=== PATIENT | male | born 1965 | race Caucasian/White ===

== ENCOUNTER → 2018-11-21 17:22 | Outpatient (CLI) | payer OTHER, SELFPAY ==
[2018-11-21 18:21] LABS: Anion Gap 11.2 mEq/L (5-15); Blood Urea Nitrogen 12 mg/dL (7-18); Calcium 9.4 mg/dL (8.5-10.1); Carbon Dioxide 30 mmol/L (21.0-32.0); Chloride 103 mmol/L (98-107); Creatinine,Serum 0.94 mg/dL (0.70-1.30); Estimated Glomerular Filt Rate 85 ml/min (>60); GFR (African American) 102 ML/MIN (>60); Glucose 157 mg/dL (74-106); Potassium 4.2 mmoL/L (3.5-5.1); Sodium 140 mmol/L (136-145)
[2018-11-22 19:06] LABS: Hemoglobin A1C 8.2 % (0.0-7.0)
[2018-11-23 11:11] LABS: Creatinine, Urine 96.4 mg/dL (Not Estab.); Microalbumin, Urine 5.3 ug/mL (Not Estab.)
[2018-11-25 14:41] LABS: Miscellaneous Test COMMENT:
== END ==
PROVIDERS: Visit Provider Specialist
DX: E10.65 Type 1 diabetes mellitus with hyperglycemia (principal)
CPT/HCPCS: 36415; 80048; 82043; 82570; 83036

== ENCOUNTER → 2021-01-01 17:33 | Outpatient (CLI) | payer OTHER, SELFPAY ==
[2021-01-01 18:15] LABS: Hemoglobin A1C 8.4 % (4.0-6.0)
[2021-01-01 18:28] LABS: Chloride 102 mmol/L (98-107); Sodium 137 mmol/L (136-145)
[2021-01-01 18:31] LABS: Blood Urea Nitrogen 12 mg/dl (9-20); Calcium 9.5 mg/dl (8.4-10.2); Carbon Dioxide 27 mmol/L (22.0-30.0); Estimated Glomerular Filt Rate 101 ml/min (>60); GFR (African American) 122 ML/MIN (>60); Glucose 125 mg/dl (74-100)
== END ==
PROVIDERS: Visit Provider Specialist
DX: E10.65 Type 1 diabetes mellitus with hyperglycemia (principal)
CPT/HCPCS: 36415; 80048; 83036

== ENCOUNTER → 2021-10-20 09:05 | Outpatient (CLI) | payer OTHER, SELFPAY ==
[2021-10-20 10:02] LABS: Alanine Aminotransferase 18 U/L (12-78); Albumin Level 3.8 g/dl (3.5-5.0); Albumin/Globulin Ratio 1.7 (1.1-1.8); Alkaline Phosphatase 79 U/L (38-126); Anion Gap 12.1 mEq/L (5-15); Aspartate Amino Transferase 22 U/L (17-59); Blood Urea Nitrogen 16 mg/dl (9-20); Calcium 9.3 mg/dl (8.4-10.2); Carbon Dioxide 27 mmol/L (22.0-30.0); Chloride 101 mmol/L (98-107); Chol/HDL Ratio 2.3 (1-3.5); Cholesterol 121 mg/dl (140-200); Estimated Glomerular Filt Rate 88 ml/min (>60); GFR (African American) 106 ML/MIN (>60); Globulin 2.2 g/dL (1.3-3.2); Glucose 279 mg/dl (74-100); HDL Cholesterol 52 mg/dl (40-60); Potassium 4.1 mmoL/L (3.5-5.1); Sodium 136 mmol/L (136-145); Triglycerides 97 mg/dl (30-150); VLDL Cholesterol 19 mg/dL (0-40)
[2021-10-20 10:03] LABS: Bilirubin,Total < 0.1 mg/dl (0.2-1.3)
[2021-10-20 10:10] LABS: Hemoglobin A1C 8.6 % (4.0-6.0)
[2021-10-20 10:13] LABS: Direct LDL Cholesterol 52.88 mg/dL (100-129)
[2021-10-20 10:20] LABS: 25-OH Vitamin D, Total 58.5 ng/mL (30-100)
[2021-10-20 10:33] LABS: Thyroid Stimulating Hormone 2.11 uIU/mL (0.465-4.68)
== END ==
PROVIDERS: PCP Internal Medicine Cardiovascular Disease; Visit Provider Nurse Practitioner Acute Care
DX: E10.65 Type 1 diabetes mellitus with hyperglycemia (principal); E10.69 Type 1 diabetes mellitus with other specified complication; E78.2 Mixed hyperlipidemia; E55.9 Vitamin D deficiency, unspecified; Z79.899 Other long term (current) drug therapy
CPT/HCPCS: 36415; 80053; 80061; 82306; 83036; 84443